=== PATIENT | female | born 2005 | race Caucasian/White ===

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

== ENCOUNTER 2023-02-06 07:37 | Emergency (ER) | payer BC, MEDICAID, SELFPAY ==
[2023-02-06 07:41] VITALS: BP 121/80; PULSE 100; RESP 18; TEMP 36.8; O2SAT 98; BMI 22.6
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
--- NOTE | 2023-02-06 07:53 | XR_ITS ---
WS: [id number] EXAMINATION: XR chest 1V portable [id number] REASON FOR EXAM: dyspnea/cough COMPARISON: None available. ORDER DATE: 02/06/2023 8:02 AM TECHNIQUE: A single, portable frontal chest x-ray was obtained. X-RAY FINDINGS: The lungs are clear. Pleural spaces are clear. No pleural effusions or pneumothorax. Cardiomediastinal silhouette is normal. No evidence for pulmonary edema. Soft tissue and osseous structures are unremarkable. No tubes or lines are present. XR/XR chest 1V portable [id number] IMPRESSION: Unremarkable frontal portable chest x-ray.
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
[2023-02-06 08:16] VITALS: BP 131/92; PULSE 117; RESP 18; O2SAT 98
[2023-02-06 08:16] LABS: Basophils # 0.1 10^3/uL (0.0-0.1); Basophils % 0.9 %; Eosinophils % 0.1 %; Hematocrit 42.4 % (37.0-47.0); Hemoglobin 14.1 g/dL (11.5-15.3); Lymphocytes # 1.6 10^3/uL (1.5-6.5); Lymphocytes % 17.5 %; Mean Corpuscular HGB Conc 33.3 g/dL (30.0-36.0); Mean Corpuscular Volume 84.3 fl (81-99); Mean Platelet Volume 10.7 fL (7.4-10.4); Monocytes # 0.4 10^3/uL (0.2-0.9); Monocytes % 4.2 %; Neutrophils # 7.02 10^3/uL (1.8-8.0); Nucleated Red Blood Cells % 0 %; Platelet Count 285 10^3/cmm (130-400); Red Blood Count 5.03 10^6/uL (4.1-5.3); Red Cell Distribution Width 12.6 % (12.1-15.1); White Blood Count 9.1 10^3/uL (4.5-13.0)
[2023-02-06 08:26] LABS: HCG, Serum Qual Negative (Negative)
[2023-02-06 08:31] LABS: Alanine Aminotransferase 33 U/L (0-33); Alkaline Phosphatase 56 U/L (35-105); Aspartate Amino Transferase 31 U/L (0-32); Blood Urea Nitrogen 4 mg/dL (6-20); Calcium 9.2 mg/dL (8.5-10.5); Carbon Dioxide 21 mmol/L (22-29); Chloride 106 mmol/L (98-107); Globulin 2.5 g/dL (1.3-4.6); Glomerular Filtration Rate 158.9 mL/min (90-130); Glucose 125 mg/dL (65-115); Osmolality Calculated 294 mOsm/kg (285-295); Sodium 143 mmol/L (136-145); Total Bilirubin 0.8 mg/dL (0.15-1.2); Total Protein 7.5 g/dL (6.6-8.7)
[2023-02-06 09:19] LABS: Add Urine Microscopic? YES; Bilirubin Urine Neg (Negative); Blood Urine 3+ (Negative); Glucose Urine UA Norm (Normal); Ketones Urine 1+ (Negative); Leukocyte Esterase Urine Negative (Negative); Nitrate Urine Negative (Negative); Protein Urine Trace (Negative); Urine Appearance Cloudy (CLEAR); Urine Color Yellow (Yellow); Urobilinogen Urine 1 mg/dL (Negative); pH Urine 6.5 (5-7)
[2023-02-06 09:24] LABS: Bacteria Urine TRACE /hpf; Mucus Urine 1+ /hpf; RBC Urine 0-4 /hpf (0-2); Squamous Epithelial Cell Urine 0-4 /hpf (0-5); WBC Urine 0-4 /hpf (0-5)
--- NOTE | 2023-02-06 09:36 | CT_ITS ---
WS: [id number] CT ABDOMEN PELVIS TECHNIQUE: Contrast-enhanced CT of the abdomen and pelvis with coronal and sagittal reformatted image s. CLINICAL INFORMATION: abd pain COMPARISON: None. DLP: 377.[address] scans at [facility] use at least one of these dose optimization techniques: automated e xposure control; mA and/or kV adjustment per patient size (includes targeted exams where dose is matc hed to clinical indication); or iterative reconstruction. FINDINGS: Lung bases are well aerated. Normal liver. No evidence of hepatic laceration. Normal spleen. Normal G E junction. Gallbladder is normal. Normal portal vein and splenic vein. Partial agenesis of the pancr eas. Pancreatic body and tail not visualized. Normal pancreatic head. Findings likely due to dorsal p ancreatic agenesis. Normal-appearing adjacent duodenum. Adrenal glands are normal. No hydronephrosis in either kidney. Normal excretion in the ureters. Normal caliber abdominal aorta. Celiac and SMA are patent. Tiny fat-containing umbilical hernia. Mult ifollicular ovaries bilaterally. Retroflexed and retroverted uterus with physiologic enhancement with endometrial thickening. Tortuous pelvic varicosities. Normal sigmoid colon. CT/CT abdomen pelvis w con* [id number] IMPRESSION: 1. Normal renal parenchymal enhancement. No hydronephrosis. 2. No evidence of solid organ injury or laceration. 3. Retroverted and retroflexed uterus with endometrial thickening and enhancem ent. Associated prominent pelvic varicosities. 4. No free fluid in the abdomen or pelvis. 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 Pancreatic head is vi sualized. Body and tail are not visualized. Consider endocrinology consult as t his has been associated with hyperglycemia and pancreatitis. This can be follow ed up with MRCP on an elective basis 6. No other acute findings.
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
[2023-02-06] MEDS: iohexol 350 mg/mL 500 mL Btl (per mL) IV (10:47)
== END 2023-02-06 11:43 | disposition home or self-care (01) ==
PROVIDERS: Emergency Provider Family Medicine; PCP Nurse Practitioner Family
DX: S80.212A Abrasion, left knee, initial encounter (principal); S80.211A Abrasion, right knee, initial encounter; R31.29 Other microscopic hematuria; Q45.0 Agenesis, aplasia and hypoplasia of pancreas; V89.2XXA Person injured in unspecified motor-vehicle accident, traffic, initial encounter
CPT/HCPCS: 36415; 70450; 71045; 72040; 73562; 74177; 80053; 81001; 84703; 85025; 99285; Q9967

== ENCOUNTER → 2024-04-15 13:34 | Outpatient (BNVA) | payer BC, MEDICAID, SELFPAY | PROVIDERS: PCP Nurse Practitioner Family; Visit Provider Nurse Practitioner Family | DX: Z11.52 Encounter for screening for COVID-19 (principal) | CPT/HCPCS: 87426 ==

== ENCOUNTER → 2024-08-24 10:41 | Outpatient (BNVA) | payer BC, MEDICAID, SELFPAY | PROVIDERS: PCP Nurse Practitioner Family; Visit Provider Nurse Practitioner Family | DX: J06.9 Acute upper respiratory infection, unspecified (principal) | CPT/HCPCS: 87880 ==